=== PATIENT | male | born 1995 | race African-American/Black ===

== ENCOUNTER 2024-01-18 09:31 | Emergency (ER) | payer OTHER, SELFPAY ==
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
[2024-01-18] MEDS ORDERED: METOCLOPRAMIDE 10 MG/2mL INJ ONE (10:07)
[2024-01-18] MEDS ORDERED: MORPHINE 4 MG/ML SYR ONE (10:07)
[2024-01-18] MEDS ORDERED: NA CHLORIDE 0.9% 1,000 ML ONE (10:08)
[2024-01-18 10:21] LABS: Absolute Eosinophils 0.4 K/uL (0-0.5); Absolute Lymphocytes (CBC) 1.8 K/uL (0.7-4.9); Absolute Monocytes 0.7 K/uL (0.1-1.3); Absolute Neutrophil 3.9 K/uL (1.8-8.0); Basophils % 0.4 % (0-1.3); Eosinophils % 5.8 % (0-4.4); Hematocrit 41.1 % (39.6-49.0); Lymphocytes % 26.1 % (15.3-44.8); MCH 30.4 pg (27.0-35.0); MCHC 34.1 g/dL (32.0-36.0); MCV 89.3 fL (80-100); MPV 9.4 fL (7.6-11.3); Monocytes % 9.9 % (3.3-12.3); Neutrophils % 57.8 % (41.7-73.7); Nucleated Red Blood Cells % 0.1 % (0-0); Platelets 153 thou/uL (152-406)
[2024-01-18 10:32] LABS: Anion Gap 4.7 mEq/L (5.0-15.0); Potassium 3.7 mEq/L (3.5-5.1)
--- NOTE | 2024-01-18 10:46 | RAD REPORT ---
EXAM DESCRIPTION: CT - Head Brain Wo Cont - 01/18/2024 10:31 am CLINICAL HISTORY: HEADACHE COMPARISON: Head angio dated 01/18/2024 TECHNIQUE: Noncontrast head CT images were obtained without IV contrast. Multiplanar reformats were generated and reviewed. All CT scans are performed using dose optimization technique as appropriate and may include automated exposure control or mA/KV adjustment according to patient size. FINDINGS: No intracranial hemorrhage, mass, or edema. Midline structures are unremarkable. Normal ventricular caliber for age. Sibley-white matter differentiation is preserved, without evidence of acute infarct. No abnormal extra- axial fluid collections. Mastoid air cells are well aerated. Up to moderate inflammatory paranasal sinus mucosal thickening wi th polypoidal thickening in the maxillary sinuses. No acute bony findings. IMPRESSION: No evidence of an acute intracranial process.
--- NOTE | 2024-01-18 11:03 | RAD REPORT ---
EXAM DESCRIPTION: CT - Head angio - 01/18/2024 10:31 am CLINICAL HISTORY: HEADACHE COMPARISON: No comparisons TECHNIQUE: Axial CT angiography images of the head was performed with multiplanar and maximum intens ity projection reconstructions. Images performed following intravenous administration of 100mL Isovue 370. All CT scans are performed using dose optimization technique as appropriate and may include automated exposure control or mA/KV adjustment according to patient size. FINDINGS: Suboptimal contrast timing limits evaluation of the more distal MCA, ED, and [employer] branches . Allowing for this, no evidence of large vessel occlusion. No evidence of aneurysm or dissection fla p is detected. No flow-limiting stenosis or vascular malformation identified. Antegrade flow is seen in the vertebral arteries. The vertebral arteries are codominant. The visualized dural venous sinuses are grossly patent. IMPRESSION: No evidence of large vessel occlusion or flow-limiting stenosis, allowing for limitation s mentioned above.
--- NOTE | 2024-01-18 11:21 | RAD REPORT ---
EXAM DESCRIPTION: CT - Neck Angio - 01/18/2024 10:31 am CLINICAL HISTORY: HEADACHE COMPARISON: No comparisons TECHNIQUE: Axial CT angiography images of the neck was performed with multiplanar and maximum intens ity projection reconstructions. Images performed following intravenous administration of 100mL Isovue 370. All CT scans are performed using dose optimization technique as appropriate and may include automated exposure control or mA/KV adjustment according to patient size. Quantification of carotid stenosis, if any, is performed according to NASCET criteria. FINDINGS: A left aortic arch is identified with normal three vessel configuration of the great vesse ls. No significant flow abnormality is seen of the common carotid bilaterally. No significant stenosis is identified involving the cervical segments of both internal carotid arteri es. Normal flow is seen within both vertebral arteries. IMPRESSION: No significant flow abnormality of the neck vessels is identified. CAROTID STENOSIS REFERENCE USING NASCET CRITERIA: % ICA stenosis = (1 - narrowest ICA diameter/diameter of distal cervical ICA) x 100. Mild - <50% stenosis. Moderate - 50-69% stenosis. Severe - 70-94% stenosis. Near occlusion - 95-99% stenosis. Occluded - 100% stenosis.
--- NOTE | 2024-01-18 11:26 | ER ---
Nurse's Notes [facility] Name: Nikolay Boateng Age: 28 yrs Sex: Male : 1995 Arrival Date: 01/18/2024 Time: 09:31 Bed 20 Private MD: Diagnosis: Headache Presentation: 01/17 09:36 Chief complaint: EMS states: Pt from [facility], c/o headache that started last ph night, pain behind eyes, sensitivity to light and sound and nausea, took Motrin w/ no relief, VSS. Coronavirus screen: Vaccine status: Patient reports being unvaccinated. Ebola Screen: No symptoms or risks identified at this time. Initial Sepsis Screen: Does the patient meet any 2 criteria? No. Patient's initial sepsis screen is negative. Does the patient have a suspected source of infection? No. Patient's initial sepsis screen is negative. Risk Assessment: Do you want to hurt yourself or someone else? Patient reports no desire to harm self or others. Onset of symptoms was January 18, 2024. 09:36 Method Of Arrival: EMS: [facility] ph 09:36 Acuity: GLORIA 3 ph Historical: - Allergies: 09:38 No Known Allergies; ph - PMHx: 09:38 Anxiety; ph - Immunization history:: Adult Immunizations unknown. - Infectious Disease History:: Denies. - Social history:: Smoking status: Patient reports the use of cigarette tobacco products, smokes one-half pack cigarettes per day, Reported history of juuling and/or vaping. - Family history:: not pertinent. - Hospitalizations: : No recent hospitalization is reported. Screenin:37 [facility] ED Fall Risk Assessment (Adult) History of falling in the last 3 months, ph including since admission No falls in past 3 months (0 pts) Confusion or Disorientation No (0 pts) Intoxicated or Sedated No (0 pts) Impaired Gait No (0 pts) Mobility Assist Device Used No (0 pt) Altered Elimination No (0 pt) Score/Fall Risk Level 0 - 2 = Low Risk Oriented to surroundings, Maintained a safe environment, Hourly rounding (assess needs \T\ fall precautionary measures) done. Abuse screen: Denies threats or abuse. Denies injuries from another. Nutritional screening: No deficits noted. Tuberculosis screening: No symptoms or risk factors identified. Assessment: 10:15 General: Appears in no apparent distress. uncomfortable, Behavior is calm, cooperative, ph appropriate for age. Pain: Complains of pain in top of head and forehead. Neuro: Level of Consciousness is awake, alert, obeys commands, Oriented to person, place, time, situation, Reports headache frontal area, photophobia. Cardiovascular: Capillary refill < 3 seconds in bilateral fingers Patient's skin is warm and dry. Respiratory: Airway is patent Respiratory effort is even, unlabored, Respiratory pattern is regular, symmetrical. Derm: Skin is pink, warm \T\ dry. Vital Signs: 09:36 BP 136 / 74; Pulse 99; Resp 18; Temp 97.8; Pulse Ox 98% on R/A; Weight 81.65 kg; Height ph 5 ft. 9 in. ; Pain 10/10; 11:35 BP 135 / 68; Pulse 87; Resp 18; Temp 97.2; Pulse Ox 98% ; ph 09:36 Body Mass Index 26.58 (81.65 kg, 175.26 cm) ph 09:36 Pain Scale: Adult ph Efe Coma Score: 11:24 Eye Response: spontaneous(4). Motor Response: obeys commands(6). Verbal Response: rn oriented(5). Total: 15. ED Course: 09:32 Patient arrived in ED. rn 09:32 Chris Bernardo MD is Attending Physician. rn 09:36 Danni Moise, RN is Primary Nurse. ph 09:38 Triage completed. ph 09:39 Arm band placed on Patient placed in an exam room, on a stretcher. ph 10:12 Basic Metabolic Panel Sent. ph 10:12 CBC with Diff Sent. ph 10:12 Initial lab(s) drawn, by mo, sent to lab. Inserted saline lock: 22 gauge in right ph antecubital area, using aseptic technique. Blood collected. 10:33 CT Head Brain wo Cont In Process Unspecified. EDMS 10:[address] In Process Unspecified. EDMS 10:[address] In Process Unspecified. EDMS 10:37 Patient has correct armband on for positive identification. Bed in low position. Call ph light in reach. Side rails up X 1. Pulse ox on. NIBP on. Door closed. Noise minimized. Lights dimmed. Warm blanket given. Pillow given. 11:25 Luis Rowley MD is Referral Physician. rn 11:35 No provider procedures requiring assistance completed. IV discontinued, intact, ph bleeding controlled, No redness/swelling at site. Pressure dressing applied. Administered Medications: 10:12 Drug: morphine IVP or IV 4 mg IVP once over 4 mins Route: IVP; Infused Over: 4 mins; ph Site: right antecubital; 11:36 Follow up: Response: No adverse reaction; Pain is decreased; RASS: Alert and Calm (0) ph 10:36 Drug: metoCLOPramide IVP 10 mg IVP once; over 1 to 2 minutes Route: IVP; Site: right ph antecubital; 11:36 Follow up: Response: No adverse reaction; Pain is decreased ph 10:37 Drug: NS 0.9% IV 1000 ml IV at 1000 ml once Route: IV; Rate: 1000 ml; Site: right ph antecubital; 11:36 Follow up: Response: No adverse reaction; IV Status: Completed infusion; IV Intake: ph 1000ml Medication: 10:37 VIS not applicable for this client. ph Intake: 11:36 IV: 1000ml; Total: 1000ml. ph Outcome: 11:26 Discharge ordered by . rn 11:36 Discharged to home ambulatory, ph 11:36 Condition: good 11:36 Discharge instructions given to patient, Instructed on discharge instructions, follow up and referral plans. medication usage, Demonstrated understanding of instructions, follow-up care, medications, Prescriptions given X 1, 11:37 Patient left the ED. ph Signatures: Dispatcher [employer] EDChris Salcido MD MD rn Hall, Patricia, RN RN ph
--- NOTE | 2024-01-18 11:26 | EDPHYS ---
Physician Documentation [facility] Name: Nikolay Boateng Age: 28 yrs Sex: Male : 1995 Arrival Date: 01/18/2024 Time: 09:31 Bed 20 Private MD: ED Physician Chris Bernardo HPI: 01/17 09:34 This 28 yrs old Black Male presents to ER via Unassigned with complaints of headache. rn 09:34 The patient complains of pain to the forehead. rn 09:47 The patient describes the headache as aching. Onset: The symptoms/episode rn began/occurred yesterday. Associated signs and symptoms: Pertinent positives: nausea, Pertinent negatives: altered mental status, dizziness, fever, vision loss, vertigo. Severity of symptoms: At its worst the pain was moderate, in the emergency department the pain is unchanged. The symptoms are alleviated by nothing. the symptoms are aggravated by lights. The patient has not experienced similar symptoms in the past. Patient reports headache that began yesterday, frontal, nonradiating, not associated with any trauma. Denies fever or feeling ill. Reports sensitivity to light and is nauseated. Patient reports history of seizures but has not been on seizure medication for a couple of years and has not had a seizure recently. Also reports family history of brain cyst but does not believe aneurysm or bleeding.. Historical: - Allergies: 09:38 No Known Allergies; ph - PMHx: 09:38 Anxiety; ph - Immunization history:: Adult Immunizations unknown. - Infectious Disease History:: Denies. - Social history:: Smoking status: Patient reports the use of cigarette tobacco products, smokes one-half pack cigarettes per day, Reported history of juuling and/or vaping. - Family history:: not pertinent. - Hospitalizations: : No recent hospitalization is reported. ROS: 09:47 Constitutional: Negative for fever, chills, and weight loss, Eyes: Negative for injury, rn pain, redness, and discharge, ENT: Negative for injury, pain, and discharge, Neck: Negative for injury, pain, and swelling, Cardiovascular: Negative for chest pain, palpitations, and edema, Respiratory: Negative for shortness of breath, cough, wheezing, and pleuritic chest pain, Abdomen/GI: Positive for nausea MS/Extremity: Negative for injury and deformity, Skin: Negative for injury, rash, and discoloration, Neuro: Positive for headache, negative for seizure or focal neurological deficit Exam: 09:47 Constitutional: This is a well developed, well nourished patient who is awake, alert, rn and in no acute distress. Head/Face: Normocephalic, atraumatic. Eyes: Pupils equal round and reactive to light, extra-ocular motions intact. Neck: Trachea midline, no masses palpated, and no cervical lymphadenopathy. Supple, full range of motion without nuchal rigidity, or vertebral point tenderness. No Meningismus. Cardiovascular: Regular rate and rhythm. No pulse deficits. Respiratory: No increased work of breathing, no retractions or nasal flaring. Abdomen/GI: Soft, non-tender MS/ Extremity: Pulses equal, no cyanosis. Neuro: Awake and alert, GCS 15, moves all 4 extremities with equal strength. Sensation intact. Vital Signs: 09:36 BP 136 / 74; Pulse 99; Resp 18; Temp 97.8; Pulse Ox 98% on R/A; Weight 81.65 kg; Height ph 5 ft. 9 in. ; Pain 10/10; 11:35 BP 135 / 68; Pulse 87; Resp 18; Temp 97.2; Pulse Ox 98% ; ph 09:36 Body Mass Index 26.58 (81.65 kg, 175.26 cm) ph 09:36 Pain Scale: Adult ph Ramer Coma Score: 11:24 Eye Response: spontaneous(4). Motor Response: obeys commands(6). Verbal Response: rn oriented(5). Total: 15. MDM: 09:32 Patient medically screened. rn 11:24 Differential diagnosis: hypertensive headache, intracerebral hemorrhage, migraine, rn neoplasm, sinusitis, subdural hematoma, tension headache, vasomotor headache. Data reviewed: vital signs, nurses notes, lab test result(s), radiologic studies, CT scan, and as a result, I will discharge patient. Counseling: I had a detailed discussion with the patient and/or guardian regarding the historical points, exam findings, and any diagnostic results supporting the discharge/admit diagnosis, lab results, radiology results, the need for outpatient follow up, to return to the emergency department if symptoms worsen or persist or if there are any questions or concerns that arise at home. Response to treatment: the patient's symptoms have markedly improved after treatment, and as a result, I will discharge patient. Special discussion: I discussed with the patient/guardian in detail that at this point there is no indication for admission to the hospital. It is understood, however, that if the symptoms persist or worsen the patient needs to return immediately for re-evaluation. ED course: Patient afebrile, normal blood work, WBC, negative CT head and angio of the head and the neck. Patient feels much better. Will discharge home with return precautions and recommend neurology follow-up since he has not been on seizure medication.. 01/17 09:33 Order name: CBC with Diff; Complete Time: 10:36 rn 01/17 09:33 Order name: Basic Metabolic Panel; Complete Time: 10:36 rn 01/17 09:33 Order name: CT Head Brain wo Cont; Complete Time: 11: rn 01/17 09:33 Order name: Head Angio CT; Complete Time: 11:11 rn 01/17 09:33 Order name: Neck Angio CT; Complete Time: 11:22 rn 01/17 09:33 Order name: IV Start; Complete Time: 10:12 rn Administered Medications: 10:12 Drug: morphine IVP or IV 4 mg IVP once over 4 mins Route: IVP; Infused Over: 4 mins; ph Site: right antecubital; 11:36 Follow up: Response: No adverse reaction; Pain is decreased; RASS: Alert and Calm (0) ph 10:36 Drug: metoCLOPramide IVP 10 mg IVP once; over 1 to 2 minutes Route: IVP; Site: right ph antecubital; 11:36 Follow up: Response: No adverse reaction; Pain is decreased ph 10:37 Drug: NS 0.9% IV 1000 ml IV at 1000 ml once Route: IV; Rate: 1000 ml; Site: right ph antecubital; 11:36 Follow up: Response: No adverse reaction; IV Status: Completed infusion; IV Intake: ph 1000ml Disposition Summary: 01/18/24 11:26 Discharge Ordered Notes: Location: Home rn Problem: new rn Symptoms: have improved rn Condition: Stable rn Diagnosis - Headache rn Followup: rn - With: Luis Rowley MD - When: As needed - Reason: Recheck today's complaints, Re-evaluation by your physician Discharge Instructions: - Discharge Summary Sheet rn - General Headache Without Cause rn Forms: - Medication Reconciliation Form rn - Antibiotic employee health rn - Prescription Opioid Use rn - Patient Portal Instructions rn - Leadership Thank You Letter rn Prescriptions: - Zithromax Z-Navin 250 mg Oral Tablet - take 1 tablet ORAL route as directed for 5 days Day 1 - take two (2) tablets rn one time. Day 2, 3, 4 , 5 take one (1) tablet once daily.; 6 tablet; Refills: 0, Product Selection Permitted Signatures: Dispatcher [employer] EDPA Chris Bernardo MD MD rn Hall, Patricia, RN RN ph Corrections: (The following items were deleted from the chart) 09:33 09:33 Neck Angio+CT.RAD.BRZ ordered. EDPA EDMS 09:34 09:34 CBC+H.LAB.BRZ ordered. EDPA EDMS 09:34 09:34 BASIC METABOLIC PANEL+C.LAB.BRZ ordered. EDPA EDMS 09:51 09:47 Constitutional: This is a well developed, well nourished patient who is awake, rn alert, and in no acute distress. Head/Face: Normocephalic, atraumatic. Eyes: Pupils equal round and reactive to light, extra-ocular motions intact. Neck: Trachea midline, no masses palpated, and no cervical lymphadenopathy. Supple, full range of motion without nuchal rigidity, or vertebral point tenderness. No Meningismus. Cardiovascular: Regular rate and rhythm. No pulse deficits. Respiratory: No increased work of breathing, no retractions or nasal flaring. Abdomen/GI: Soft, non-tender MS/ Extremity: Pulses equal, no cyanosis. Neuro: Awake and alert, GCS 15 rn
[2024-01-18 18:34] VITALS: BP 135/68; TEMP 97.2; O2SAT 98
== END 2024-01-18 11:37 | disposition home or self-care (01) ==
LOC: ER 09:31
DX: R51.9 Headache, unspecified (principal)
CPT/HCPCS: 36415; 70450; 70496; 70498; 80048; 85025; J2765; J7030; Q9967